=== PATIENT | female | born 1970 | race Caucasian/White ===

== ENCOUNTER → 2020-05-14 09:11 | Outpatient (CLI) | payer SELFPAY ==
--- NOTE | 2020-05-14 | ASPOS_PTH ---
PATIENT: MARY YBARRA LOC: [facility] U#:[id number] AGE/SX: 54/F ROOM: RE05/14/[address]: Dr. Sridhar Banda MD : 1970 BED: DIS: SPEC #: [id number] RECD: 05/14/20 10:38 STATUS: YULISSA [place] #: [id number] RASHEED: 05/14/20 00:[address]: Sridhar Banda DEPT: CYTOLOGY RECD BY: Brendan Leone ENTERED: 05/14/20 10:39 SP TYPE: ASP HERE OTHR DR: Dr. Mxaimus Huff MD Tissues: Neck, NOS Procedures: Surgery Specimen Level IV Cytology Other Fine Needle Asp on Site HEADER OPERATION: FNA left neck mass PRE-OP DIAGNOSIS: Left neck mass TISSUE SUBMITTED: Left neck mass for cytology DIAGNOSIS CYTOLOGY Fine needle aspiration, left neck mass (smears and cell block): Positive for malignant cells, non-small cell carcinoma. See comment. AM:raoul 05/17/2020 COMMENT The specimen is evaluated at the time of FNA by Dr. Davalos. Immediate Evaluation = Positive for malignant cells, non-small cell carcinoma. The tumor cells are negative for TTF-1 and Napsin A. Squamous cell markers (p40, CK14 and CF5-6) are negative. Clinical correlation is suggested. Immunohistochemistry ([id number]) supports the above diagnosis. Case has been reviewed in consultation with Dr. Monsalve who concurs with the above diagnosis. IDC:SJ CYTOLOGY STUDY Slides are reviewed. CYTOLOGY GROSS Received is 0.5 ml of reddish fluid labeled with the patient's name, and designated left neck. Four imprints and two paps are made from the submitted fluid and the rest is added to CytoLyt for cell block preparation. Submitted for cytology study. / AM:raoul 05/14/2020 TC:0 CPT: 28379, 69894, 54017, 09698 ADDENDUM ADDENDUM ADDENDUM ADDENDUM ADDENDUM ADDENDUM 06/14/2020 10:27 ADDENDUM 06/23/2020 09:58 ADDENDUM 07/06/2020 09:35 ADDENDUM 06/14/2020 10:27 ADDENDUM 06/14/2020 10:27 ADDENDUM 06/14/2020 10:27 ADDENDUM 06/14/2020 10:27 PD-L1 (KEYTRUDA) IMMUNOHISTOCHEMICAL ANALYSIS FROM [employer] RESULTS: Tumor proportion score: <1% / Negative Please see complete report in e-chart or EMR [facility] NGS REPORT FROM [facility] RESULT SUMMARY: Abnormal PERTINENT NEGATIVE RESULTS: The following genes are NEGATIVE for clinically relevant mutations. Mutational hotspots and surrounding exonic regions were interrogated for DNA level point mutations and indels (fusions not assayed). AKT1, ALK, BRAF, EGFR, ERBB2, FGFR1, KRAS, MAP2K1, MET, NRAS, NTRK1, PIK3CA, POLD1, POLE, TERT Please see complete report in e-chart or EMR [facility] NEXT GENER[facility] SEQUENCING GENE FUSION PANEL Test not performed. The specimen did not contain sufficient tumor material. Please see complete report in e-chart or EMR
--- NOTE | 2020-05-14 | IMM_PTH ---
PATIENT: MARY YBARRA LOC: LAB U#:[id number] AGE/SX: 54/F ROOM: RE05/14/[address]: Dr. Sridhar Banda MD : 1970 BED: DIS: SPEC #: [id number] RECD: 05/17/20 14:05 STATUS: YULISSA REQ #: [id number] RASHEED: 05/14/20 00:[address]: Sridhar Banda DEPT: IMMUNOHISTOCHEMISTRY RECD BY: Arabella Ibarra ENTERED: 05/17/20 14:07 SP TYPE: IMMUNO OTHR DR: Dr. Maximus Huff MD Tissues: Neck, NOS Procedures: NAPSIN A (add) CK14 (add) CK20 (add) CK5-6 (add) CK7 (add) CK8 (add) P53 (add) Pankeratin (add) P40 (add) TTF1 (initial) PHYSICIAN & INSTITUTION [facility] [phone] SPECIMEN INFORMATION: Tissue Source: Left neck mass Clinical Info: Left neck mass Specimen Number: [id number] CPT code: 77850, 01019 x9 METHODOLOGY: Deparaffinized sections of prefer/formalin-fixed tissue or PAP/DQ stained slides are incubated with monoclonal/polyclonal antibodies/oligonucleotide probes. Localization is made via biotin free immunoperoxidase method. Appropriate controls are performed and reacted as expected. Results on target cell population are indicated in the following table: RESULTS: ANTIBODY / CLONE RESULT TTF-1 (8G7G3/1) negative Napsin A (Rabbit Polyclonal) negative CK5-6 (D5 & 1684) negative CK14 (LL002) negative P40 (BC28) negative P53 (DO-7) positive AE1-3 (AE1/AE3/PCK26) positive CK7 (OV-TL12/30) positive CK8 (78rgkpP50) positive CK20 (KS20.8) negative These tests were developed and their performance characteristics determined by [facility]. They may not have been cleared or approved by the U.S. Food and Drug Administration. The FDA has determined that such clearance or approval is not necessary. The above immunohistochemical/dualISH markers are ordered and reviewed by the Pathologist. INTERPRETATION: Left neck mass, fine needle aspiration: Positive for malignant cells, non-small cell carcinoma. AM:raoul 05/19/2020 Case has been reviewed in consultation with Dr. Monsalve who concurs with the above diagnosis. IDC:SJ
== END ==
PROVIDERS: Referring Provider Otolaryngology; Visit Provider Otolaryngology
DX: R22.1 Localized swelling, mass and lump, neck (principal)
CPT/HCPCS: 10021; 88161; 88305; 88341; 88342

== ENCOUNTER → 2020-05-25 13:02 | Outpatient (CLI) | payer SELFPAY ==
--- NOTE | 2020-05-25 13:28 | MRI_ITS ---
STUDY: MRI BRAIN WITH AND WITHOUT CONTRAST REASON FOR EXAM: Female, 49 years old. LEFT neck CA of unknown orging, mass. Positive biopsy of nonsmall cell carcinoma concern for metsatic dz TECHNIQUE: Standardized multiplanar fat and water weighted pulse sequences were obtained. IV 11 Dotarem was administered for the contrast portion of the examination. COMPARISON: None. FINDINGS: Normal size of the ventricles and extra-axial spaces for the patient''s age. Normal white matter tracts of the supratentorial brain. There is no evidence for recent intracranial ischemia or other cause of cytotoxic edema on diffusion weighted imaging (DWI). Normal T2* images of the brain without demonstrated susceptibility artifact. There is no demonstrated hemosiderin stain. Normal bilateral basal ganglia. Normal thalami. There is no extra-axial fluid accumulation. Normal flow voids within the major intracranial circulation suggesting patency by spin echo criteria. Normal venous enhancement. There is no enhancing intra-axial or extra-axial abnormality. Normal sella turcica, pituitary gland, infundibular stalk, optic chiasm and hypothalamus. Normal tectal plate and pineal gland. Normal midbrain, wesly and medulla. Normal cerebellum. Normal basal cisterns. Normal bilateral temporal bones. Normal bilateral internal auditory canals. No demonstrated orbital abnormality, within the constraints of a routine brain study. Normal visualized paranasal sinuses. Normal calvarium and skull base. Normal visualized soft tissue structures. Normal visualized upper cervical spine. MRI/Brain W/WO Contrast IMPRESSION: Normal unenhanced and enhanced MRI of the brain. Electronically Signed: Brayan Chiu MD at 15:05 EST Tel , Service support ,
== END ==
PROVIDERS: Referring Provider Otolaryngology; Visit Provider Otolaryngology
DX: C76.0 Malignant neoplasm of head, face and neck (principal)
CPT/HCPCS: 70553; A9575

== ENCOUNTER → 2020-06-01 16:26 | Outpatient (CLI) | payer SELFPAY ==
--- NOTE | 2020-06-01 16:00 | PET_ITS ---
EXAMINATION: FDG PET/CT INDICATIONS: A 49-year-old female with reported history of apparent head and neck carcinoma presenting for initial staging examination. COMPARISON EXAMINATION: None available INDEX LESION SIZE SUV INTERPRETATION Left lateral posterior neck level V-A 26.5-mm (frame 229) 11.4 Fulfills quantitative criteria for viable neoplasm Right lateral neck level II-B 6.3-mm (frame 232) 3.2 Fulfills quantitative criteria for viable neoplasm Right thoracic perihilum-infrahilar region 5.2 x 6.1-cm (largest) (frame 170) 12.2 (max) Fulfills quantitative criteria for viable neoplasm Abdominal retroperitoneum, retrocrural soft tissue nodularity 18.4-mm (largest) (frame 107) 5.6 (max) Fulfills quantitative criteria for viable neoplasm Left adrenal gland 7.0 Fulfills quantitative criteria for viable neoplasm TECHNIQUE: Following the intravenous administration of 11.7 mCi of F-18 deoxyglucose via the left antecubital fossa, multiplanar image acquisitions of the neck, chest, abdomen and pelvis to level of mid thigh, obtained at one hour post radiopharmaceutical administration contemporaneously interpreted with the current CT of the neck, chest, abdomen and pelvis to level of mid thigh, dated 06/01/20 via coregistration reveal: SERUM GLUCOSE LEVEL: 110 mg/dl. HEIGHT: 60 inches. WEIGHT: 120 lbs. FINDINGS: 1. There is an asymmetric increase in glucose metabolism manifest in the left lateral neck posteriorly involving level V-A generating a calculated maximal standard uptake value of 11.4. The maximal axial diameter of the corresponding metabolic, morphologic abnormality on review of CT of the neck dated 06/01/20 is 26.5-mm (transverse). 2. Enhanced tracer concentration is observed in the right lateral neck involving level II-B in a single nodular focus. The calculated maximal standard uptake value is 3.2. The maximal axial diameter of the corresponding soft tissue density without fatty hilus expression on review of CT of the neck dated 06/01/20 is 6.3-mm (AP). 3. Enhanced fluorine labeled glucose metabolism is defined in the right thoracic perihilum-infrahilar region generating a calculated maximal standard uptake value of 12.2. The maximal axial diameter of the corresponding metabolic, morphologic abnormality on review of CT of the chest dated 06/01/20 is 5.2-cm (transverse) x 6.1-cm (AP). 4. An increase in FDG distribution is defined in the right lower abdominal retroperitoneum, the right upper abdomen corresponding to retrocrural soft tissue. The calculated maximal standard uptake value is 5.6. The maximal axial diameter of the largest individual hypermetabolic soft tissue density on review of CT of the abdomen dated 06/01/20 is 18.4-mm (transverse). 5. There is an increase in radiotracer uptake observed in the left upper abdomen associated with a prominent size left adrenal gland registering a calculated maximal standard uptake value of 7.0. 6. Normal physiologic distribution of the radiopharmaceutical is apparent in the hepatic (2.4) and splenic parenchyma, both renal units, bladder and visualized intestinal tract. The visualized portion of the cerebral cortex demonstrate symmetric and preserved glucose metabolism. Diffuse radiopharmaceutical concentration is noted in all four quadrants of the abdomen and pelvis. Pertinent CT findings are as follows: CHEST: There is atherosclerotic calcification defined in the thoracic aorta without evidence of dilatation-aneurysm formation. Bilateral axillary soft tissue densities with fatty hilus are ametabolic. Additional parenchymal densities defined in the right hemithorax pulmonary parenchyma do not demonstrate quantitatively significant increased FDG concentration with a calculated maximal standard uptake value of 1.7. Interfissural pleural effusion is ametabolic. ABDOMEN AND PELVIS: There is atherosclerotic calcification defined in the abdominal aorta without evidence of dilatation-aneurysm formation. Pelvic arterial calcification is observed. Bilateral inguinal soft tissue densities are non-glucose avid. Colonic diverticulosis is encountered without evidence of diverticulitis. SKELETAL: Degenerative changes are noted in the cervical, thoracic and lumbar spine without evidence of increased radiopharmaceutical concentration. PET/PET/CT Tumor Base -Thigh Init IMPRESSION: 1. ABNORMAL EXAMINATION INDICATIVE OF ORHLEGTNL-[id number]-[id number] VIABLE NEOPLASM. 2. Increased glucose concentration observed in the bilateral lateral neck fulfill quantitative criteria for viable neoplasm. 3. The right thoracic perihilar infrahilar hypermetabolic focus fulfills quantitative criteria for malignant transformation. (Shira jackson al, Journal of Clinical Oncology 16:2142, 1998). 4. Viable neoplasm appears evident in the abdominal retroperitoneum and upper abdomen, retrocrural in location. 5. Enhanced tracer uptake observed in the left adrenal gland fulfills quantitative criteria for viable neoplasm. Electronic Signature Brayan Arevalo D.O. Accurate Quantification of SUVs for this report are calculated using the exclusive [employer]? Technology.??Exclusive [place].S. Patent [employer]? Technology (U.S. Patent No. [phone]). Electronically Signed: Brayan Arevalo DO at 9:33 EST Tel , Service support ,
== END ==
PROVIDERS: Referring Provider Otolaryngology; Visit Provider Otolaryngology
DX: C76.0 Malignant neoplasm of head, face and neck (principal)
CPT/HCPCS: 78815; A9552

== ENCOUNTER → 2020-10-07 09:16 | Outpatient (CLI) | payer MEDICAID, SELFPAY ==
--- NOTE | 2020-10-07 | ASPOS_PTH ---
PATIENT: MARY YBARRA LOC: [facility] U#:[id number] AGE/SX: 54/F ROOM: RE10/07/[address]: Dr. Paul Reyes MD : 1970 BED: DIS: SPEC #: [id number] RECD: 10/07/20 10:00 STATUS: YULISSA VARGASLudin #: [id number] RASHEED: 10/07/20 00:[address]: Paul Reyes DEPT: CYTOLOGY RECD BY: Delores Rosenthal Tissues: Neck, NOS Procedures: Surgery Specimen Level IV Cytology Other Fine Needle Asp on Site HEADER OPERATION: Fine needle aspiration right neck mass PRE-OP DIAGNOSIS: Right neck mass TISSUE SUBMITTED: Fine needle aspiration right neck mass DIAGNOSIS CYTOLOGY Fine needle aspiration, right neck mass (smears and cell block): Positive for malignant cells consistent with metastatic non-small cell carcinoma. See comment. AM:raoul 10/08/2020 COMMENT The specimen is evaluated at the time of FNA by Dr. Davalos. Immediate Evaluation = Positive for malignant cells consistent with metastatic non-small cell carcinoma. Immunohistochemistry ([id number]) supports the diagnosis and does not favor a thyroid primary. Reference is made to previous cytology (C21-7) with similar findings. Clinical correlation is suggested. Case has been reviewed in consultation with Dr. Monsalve who concurs with the above diagnosis. IDC:SJ CYTOLOGY STUDY Slides are reviewed. CYTOLOGY GROSS Received is 0.2 ml of reddish fluid labeled with the patient's name, and designated right neck mass. Five imprints and three paps are made from the submitted fluid and the rest is added to CytoLyt for cell block preparation. Submitted for cytology study. / BISHNU:raoul 10/07/2020 TC:0 CPT: 50573, 18978, 38898, 53276 ADDENDUM ADDENDUM ADDENDUM ADDENDUM ADDENDUM ADDENDUM ADDENDUM ADDENDUM ADDENDUM 01/05/2021 10:57 ADDENDUM 01/05/2021 10:57 ADDENDUM 01/05/2021 10:57 ADDENDUM 01/05/2021 10:57 ADDENDUM 01/05/2021 10:57 [facility] PAN[facility] FROM [facility] [employer] Test not performed. Upon nucleic acid extraction from the submitted specimen, insufficient nucleic acid amounts were obtained to meet the requirements for molecular testing. Please see complete report in e-chart or EMR
--- NOTE | 2020-10-07 | IMM_PTH ---
PATIENT: MARY YBARRA LOC: [facility] U#:[id number] AGE/SX: 54/F ROOM: RE10/07/[address]: Dr. Paul Reyes MD : 1970 BED: DIS: SPEC #: [id number] RECD: 10/08/20 13:08 STATUS: YULISSA RELudin #: [id number] RASHEED: 10/07/20 00:[address]: Paul Reyes DEPT: IMMUNOHISTOCHEMISTRY RECD BY: Arabella Ibarra Tissues: Neck, NOS Procedures: Thyroglobulin (add) NAPSIN A (add) CD56 (add) CK20 (add) CK5-6 (add) CK7 (add) CK8 (add) WARREN-2 (add) GAL-3 (add) MAMM (add) P53 (add) OK (add) TTF1 (add) Vimentin (add) Pankeratin (add) GATA3 (add) P40 (add) CDX2 (add) ER (initial) S-100 (add) PHYSICIAN & INSTITUTION [address] [address] SPECIMEN INFORMATION: Tissue Source: Right neck mass Clinical Info: Right neck mass Specimen Number: [id number] CPT code: 85637, 34042 x19 METHODOLOGY: Deparaffinized sections of prefer/formalin-fixed tissue or PAP/DQ stained slides are incubated with monoclonal/polyclonal antibodies/oligonucleotide probes. Localization is made via biotin free immunoperoxidase method. Appropriate controls are performed and reacted as expected. Results on target cell population are indicated in the following table: RESULTS: ANTIBODY / CLONE RESULT ER (6F11) negative OK (1E2) negative Mammaglobin (31A5) negative GATA3 (L50-823) negative AE1-3 (AE1/AE3/PCK26) negative CK7 (OV-TL12/30) positive, dim CK8 (86woqpR56) positive, rare CK20 (KS20.8) negative WARREN-2 (SP21) positive CDX2 ([id number]) negative Vimentin (V9) negative S-100 (4C4.9) negative GAL3 (9C4) negative CD56 (123C3.D5) negative TTF-1 (8G7G3/1) negative Napsin A (Rabbit Polyclonal) negative Thyro (2H11+6E1) negative CK5-6 (D5 & 1684) negative P40 (BC28) negative P53 (DO-7) negative These tests were developed and their performance characteristics determined by [facility]. They may not have been cleared or approved by the U.S. Food and Drug Administration. The FDA has determined that such clearance or approval is not necessary. The above immunohistochemical/dualISH markers are ordered and reviewed by the Pathologist. INTERPRETATION: Right neck mass, fine needle aspiration: Consistent with metastatic non-small cell carcinoma. AM:raoul 10/11/2020 Comment: The IHC profile does not favor a thyroid primary. Case has been reviewed in consultation with Dr. Monsalve who concurs with the above diagnosis. IDC:SJ
== END ==
PROVIDERS: Referring Provider Otolaryngology; Visit Provider Otolaryngology
DX: R22.1 Localized swelling, mass and lump, neck (principal)
CPT/HCPCS: 10021; 88161; 88305; 88341; 88342

== ENCOUNTER 2020-12-20 14:11 | Emergency (ER) | payer MEDICAID, SELFPAY ==
[2020-12-20 14:12] VITALS: BP 121/77; PULSE 117; RESP 20; TEMP 36.6; O2SAT 93; BMI 23.4
[2020-12-20 14:17] VITALS: BP 121/77; PULSE 117; RESP 20; TEMP 36.6; O2SAT 93
--- NOTE | 2020-12-20 14:33 | CT_ITS ---
HISTORY: Eval for postobstructive pneumonia EXAMINATION: CT Chest W/ Contrast Injection TECHNIQUE: Helically acquired images were obtained of the chest following IV contrast. A radiation dose optimization technique was used for this scan. IV Contrast dosage and agent: 100mL Isovue-300 COMPARISON: 06/01/20 FINDINGS: LUNGS, PLEURA AND LARGE AIRWAYS: Increasing size right hilar soft tissue mass, greatest transverse diameter 6.2 cm compared to prior 5.5 cm. Soft tissue mass constricts the right bronchus intermedius and occludes the proximal bronchus to the right lower lobe. Abnormal soft tissue extends from the right hilar mass to the pleural surface of the right middle lobe anterolaterally. Scattered airspace opacities in the lingula, left lower and right upper lobe, minimally in the right lower lobe with small areas of confluence in the right upper and lower lobes. Multiple pneumatoceles now apparent in the right lower lobe, not previously present. THYROID: Stable 2.3 cm right lobe nodule. HEART AND PERICARDIUM: Heart size is normal. No pericardial effusion. VESSELS: Thoracic aorta is not dilated. No aortic dissection. No obvious central pulmonary embolism. Pulmonary artery to the right lower lobe does not enhance. MEDIASTINUM AND MAX: No additional mediastinal or hilar adenopathy. Esophagus is unremarkable. No hiatal hernia. UPPER ABDOMEN: Increasing left adrenal nodule, 4.2 cm, consistent with metastasis. BONES: No suspicious lytic or blastic abnormality. CT/Chest WITH Contrast IMPRESSION: Progression of the right hilar mass with occlusion of the proximal bronchus to the right lower lobe and pulmonary artery branches to the right lower lobe. Soft tissue extension, likely neoplastic to the pleural surface of the right middle lobe. Scattered bilateral airspace opacities suspicious for metastatic disease although infection cannot be excluded. Multiple pneumatoceles right lower lobe which are new since the prior study and may represent the sequela of infection. Increasing left adrenal metastasis. Individualized dose optimization techniques were used for this CT. at 1604 Reported and signed by: Gordo Franks MD Electronically Signed: Gordo Franks MD at 16:03 EDT Tel , Service support ,
--- NOTE | 2020-12-20 14:35 | EDS_ITS ---
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 This fever has been on and off over the past 5 weeks. Typically does occur daily. It does respond to Tylenol for a few hours but comes back. She did have a large work-up at an outside emergency department this past Sunday. Urine and blood cultures are currently pending. She was started on Augmentin, she has taken 5 doses so far. She is being treated with nystatin for thrush. She was sent in by her oncologist to rule out a postobstructive pneumonia. She does have a chronic cough that she does not feel is worse than normal. No sputum production. No chest pain or shortness of breath. She denies any significant headache or neck pain. No abdominal pain or diarrhea. She does have change in bowel movements but relates this to her chemotherapy. She does have a rash on her upper chest and relates this to a sunburn. No other rashes elsewhere. [facility] Medical History (Updated 12/20/20 @ 16:[address] Chuy Marmolejo DO) Lung cancer Home Medications folic acid 1 mg PO DAILY 12/20/20 [History Last Taken Unknown] levofloxacin 750 mg PO DAILY #7 tab 12/20/20 [Rx Last Taken Unknown] nystatin 5 ml PO TID 12/20/20 [History Last Taken Unknown] ondansetron 4 mg PO Q6H PRN PRN 12/20/20 [History Last Taken Unknown] Allergy/AdvReac Type Severity Reaction Status Date / Time sulfamethoxazole Allergy Rash Verified 12/20/20 14:17 [From Bactrim] trimethoprim [From Bactrim] Allergy Rash Verified 12/20/20 14:17 Social History Smoking Status: Former smoker ROS ROS ED Constitutional Constitutional ED: Reports fever(s) Eyes Eyes: Denies change in vision ENT ENT ED: Denies epistaxis or rhinorrhea Cardiovascular Cardiovascular: Denies chest pain or palpitations Respiratory/Chest Respiratory/Chest: Reports cough; Denies dyspnea, dyspnea on exertion or sputum Gastrointestinal Gastrointestinal: Reports diarrhea; Denies abdominal pain, nausea or vomiting Genitourinary Genitourinary ED: Denies dysuria, hematuria or urinary frequency Musculoskeletal Musculoskeletal: Denies back pain or neck pain Integumentary Denies rash Neurologic Neurologic: Denies dizziness, headache(s) or weakness EXAM Physical Exam Const Vital Signs: 12/20/20 14:12 12/20/20 14:17 12/20/20 16:52 Temperature 97.9 F 97.9 F 98 F Temperature Source Temporal Temporal Pulse Rate 117 H 117 H 89 Respiratory Rate 20 H 20 H 17 Respiratory Effort Normal Respiratory Pattern Normal Blood Pressure 121/77 H 121/77 H Blood Pressure Mean 91 91 Pulse Ox 93 93 99 Oxygen Delivery Method Room Air Room Air Positive well nourished and well developed General Appearance ED: well developed and NAD HEENT Reports normocephalic, head/scalp atraumatic, TM's clear and moist mucous membranes HEENT Narrative: White plaque on tongue present. No other oral lesions or abscess appreciated. Tympanic Membrane ED: Yes TM's clear Eyes PERRL and EOMs intact bilaterally Neck no lymphadenopathy and supple General: Negative for tenderness Resp normal respiratory effort and clear to auscultation bilaterally Auscultation: Negative for rales, rhonchi or wheezes Cardio regular rhythm and no murmurs Rate: tachycardic GI normal to inspection, nondistended, normoactive bowel sounds and non-tender Palpation: soft; Negative for guarding or rebound tenderness present Extremity normal to inspection General Extremety ED: Negative for edema or tenderness General Extremity: Negative for edema Neuro Sensorium / Orientation: alert Motor Exam: strength 5/5 throughout Psych mental status grossly normal Skin Skin Narrative: Erythema over superior anterior chest. MDM MDM MDM Narrative Medical decision making narrative: Patient presents to the emergency department for fever of unknown origin. She was sent in by her oncologist to rule out a postobstructive pneumonia. She does currently have urine and blood cultures pending from outside hospital from this past Sunday. She is currently on Augmentin and nystatin for thrush. We will repeat blood cultures, basic lab work and CT scan of the chest. She had a negative x-ray of the chest just recently. CT scan of the chest was performed. There was enlarging of the previous seen mass. This is causing obstruction of the bronchus. The metastatic adrenal mass also appears larger. There are other findings which can be found in the radiology report. I did call the oncologist and went over the entire scan with him. I did review with the patient as well. He states that he has had previous imaging since and can compare to those. Patient's lower does not reveal her to be neutropenic. She does not have a high white blood cell count. The rest of her lab did not reveal a significant acute abnormality. Sodium potassium are mildly low. She otherwise has remained stable throughout ED stay. Her oncologist did request to switch the Augmentin to levofloxacin. He is going to contact her tomorrow for close follow-up. Lab Data Labs: Laboratory Results - last 24 hr 12/20/20 12/20/20 14:43 14:43 WBC 5.5 RBC 3.71 L Hgb 10.7 L Hct 33.4 L MCV 90.0 MCH 28.8 MCHC 32.0 RDW Std Deviation 55.6 H RDW Coeff of Derrick 16.9 H Plt Count 410 MPV 10.1 Immature Gran % (Auto) 1.400 H Neut % (Auto) 75.0 H Lymph % (Auto) 11.2 L [place] % (Auto) 10.8 H Eos % (Auto) 0.0 Baso % (Auto) 1.6 H Absolute Neuts (auto) 4.2 Absolute Lymphs (auto) 0.62 L Nucleated RBC % 0 Sodium 132 L Potassium 3.1 L Chloride 97 L Carbon Dioxide 27.0 Anion Gap 8 BUN 7 Creatinine 0.48 L Estim Creat Clear Calc 99.60 Est GFR (MDRD) Af Amer 177 Est GFR (MDRD) Non-Af 147 BUN/Creatinine Ratio 14.7 Glucose 108 H Calcium 8.8 Total Bilirubin 0.30 AST 24 ALT 17 Alkaline Phosphatase 59 Total Protein 7.3 Albumin 2.5 L Globulin 4.8 H Albumin/Globulin Ratio 0.5 L Radiography Diagnostic Testing: Radiology Impression Chest CT 12/20/20 14:33 IMPRESSION: Progression of the right hilar mass with occlusion of the proximal bronchus to the right lower lobe and pulmonary artery branches to the right lower lobe. Soft tissue extension, likely neoplastic to the pleural surface of the right middle lobe. Scattered bilateral airspace opacities suspicious for metastatic disease although infection cannot be excluded. Multiple pneumatoceles right lower lobe which are new since the prior study and may represent the sequela of infection. Increasing left adrenal metastasis. Individualized dose optimization techniques were used for this CT. at 1604 Reported and signed by: Gordo Franks MD Electronically Signed: Gordo Franks MD at 16:03 EDT Tel , Service support , Discharge Plan Triage Chief Complaint: Fever ED Provider: Chuy Marmolejo Dx/Rx/DC Orders Clinical Impression: Fever Instructions: ED FUO Adult, ED Pneumonia (Adult) Prescriptions: New levofloxacin 750 mg tablet 750 mg PO DAILY Qty: 7 RF: 0 No Action nystatin 100,000 unit/mL suspension 5 ml PO TID RF: 0 folic acid 1 mg tablet 1 mg PO DAILY RF: 0 ondansetron 4 mg tablet,disintegrating 4 mg PO Q6H PRN PRN (Reason: Nausea) RF: 0 Primary Care Provider: Care Physician,No Primary Referrals: Care Physician,No Primary [Primary Care Provider] - Activity Restrictions/Additional Instructions: Please follow-up with your oncologist tomorrow. You can stop the Augmentin and start the Levaquin. Disposition Disposition: Home, Self Care Discharge Date/Time: 12/20/20 16:53
[2020-12-20 14:56] LABS: Absolute Lymphocyte Count 0.62 X10^3/uL (0.83-4.51); Absolute Neutrophil Count 4.2 X10^3/uL (2.0-7.7); Basophil# 0.09 X10^3/uL; Basophil% 1.6 % (0-1); Hematocrit 33.4 % (37-47); Hemoglobin 10.7 g/dL (12.0-15.0); Lymphocyte # 0.62 X10^3/ul (0.83-4.51); Lymphocyte % 11.2 % (19-41); Mean Corpuscular Hgb 28.8 pg (27.0-32.0); Mean Platelet Vol. 10.1 fl (6.2-12.0); Monocyte% 10.8 % (0-10); NRBC Flagged by Analyzer 0 % (0-5); Neutrophil # 4.15 X10^3/uL (2.7-7.7); Platelet Count 410 K/mm3 (150-450); RBC Distribution Width CV 16.9 % (11.6-14.6); RBC Distribution Width SD 55.6 fl (35.1-43.9); Red Blood Count 3.71 M/mm3 (4.2-5.4); White Blood Count 5.5 K/mm3 (4.4-11.0)
[2020-12-20 15:23] LABS: ALB/GLOB Ratio 0.5 RATIO (0.9-2.4); AST(SGOT) 24 U/L (15-37); Alanine Aminotransfer ALT/SGPT 17 U/L (13-56); Albumin, Serum 2.5 g/dL (3.2-5.0); Alkaline Phosphatase 59 U/L (45-117); Anion Gap 8 (5-15); BUN 7 mg/dL (7-18); BUN/Creat Ratio 14.7 RATIO (10-20); Calcium,Total 8.8 mg/dL (8.5-10.1); Chloride 97 mmol/L (98-107); Creatinine, Serum 0.48 mg/dL (0.55-1.02); EST Glomerular Filtration Rate 147 mL/min (>60); Est Glom Filt Rate - Afr Amer 177 mL/min (>60); Globulin 4.8 g/dL (2.2-4.2); Glucose 108 mg/dL (74-106); Potassium 3.1 mmol/L (3.5-5.1); Protein, Total 7.3 g/dL (6.4-8.2); Sodium Level 132 mmol/L (136-145)
--- NOTE | 2020-12-20 16:19 | NURSING ---
DR Yaron VU
--- NOTE | 2020-12-20 16:20 | NURSING ---
DR JIMENEZ PAGED
[2020-12-20 16:52] VITALS: PULSE 89; RESP 17; TEMP 36.6; O2SAT 99
== END 2020-12-20 16:53 | disposition home or self-care (01) ==
PROVIDERS: Emergency Provider Emergency Medicine
DX: R50.9 Fever, unspecified (principal); J98.4 Other disorders of lung; C79.72 Secondary malignant neoplasm of left adrenal gland; B37.0 Candidal stomatitis; Z79.899 Other long term (current) drug therapy; Z87.891 Personal history of nicotine dependence; Z85.118 Personal history of other malignant neoplasm of bronchus and lung
CPT/HCPCS: 71260; 80053; 85025; 87040; 99283; J7030; Q9967

== ENCOUNTER → 2020-12-27 11:25 | Outpatient (CLI) | payer MEDICAID, SELFPAY ==
[2020-12-27 11:41] LABS: Absolute Lymphocyte Count 0.67 X10^3/uL (0.83-4.51); Absolute Neutrophil Count 2.5 X10^3/uL (2.0-7.7); Basophil# 0.05 X10^3/uL; Basophil% 1.3 % (0-1); Hematocrit 35.4 % (37-47); Hemoglobin 11.6 g/dL (12.0-15.0); Lymphocyte # 0.67 X10^3/ul (0.83-4.51); Lymphocyte % 17.9 % (19-41); Mean Corp Hgb Conc 32.8 g/dL (32-36); Mean Corpuscular Hgb 28.8 pg (27.0-32.0); Mean Corpuscular Volume 87.8 fL (81-99); Monocyte% 13.4 % (0-10); NRBC Flagged by Analyzer 0 % (0-5); Neutrophil # 2.47 X10^3/uL (2.7-7.7); Neutrophil % 66.1 % (47-70); Platelet Count 544 K/mm3 (150-450); RBC Distribution Width CV 17.2 % (11.6-14.6); RBC Distribution Width SD 54.4 fl (35.1-43.9); Red Blood Count 4.03 M/mm3 (4.2-5.4); White Blood Count 3.7 K/mm3 (4.4-11.0)
[2020-12-27 12:13] LABS: Rheumatoid Factor < 10.0 IU/mL (<15); Thyroid Stim Hormone (TSH) 0.76 uIU/mL (0.358-3.74)
[2020-12-28 12:09] LABS: ANTINUCLEAR ANTIBODIES DIRECT Positive (Negative); Anti-Centromere B Ab <0.2 AI (0.0-0.9); Anti-Chromatin <0.2 AI (0.0-0.9); Anti-Jo <0.2 AI (0.0-0.9); Anti-Scleroderma-70 AB <0.2 AI (0.0-0.9); RNP Ab <0.2 AI (0.0-0.9); SJOGREN'S Anti-SS-A test 3.5 AI (0.0-0.9); SJOGREN'S Anti-SS-B test < 0.2 AI (0.0-0.9); Smith Ab <0.2 AI (0.0-0.9)
[2020-12-28 16:56] LABS: Anti-dsDNA Ab 1 IU/mL (0-9)
[2020-12-29 03:07] LABS: Cytoplasmic Ab (C-ANCA) <1:20 titer (Neg:<1:20)
[2020-12-29 09:40] LABS: CCP IgG Antibodies 6 units (0-19); Perinuclear Ab (P-ANCA) <1:20 titer (Neg:<1:20)
== END ==
PROVIDERS: PCP Family Medicine; Referring Provider Internal Medicine Critical Care Medicine; Visit Provider Internal Medicine Critical Care Medicine
DX: R50.9 Fever, unspecified (principal); R93.89 Abnormal findings on diagnostic imaging of other specified body structures
CPT/HCPCS: 36415; 84443; 85025; 86038; 86200; 86225; 86235; 86256; 86431

== ENCOUNTER → 2020-12-27 11:45 | Outpatient (CLI) | payer MEDICAID, SELFPAY | PROVIDERS: PCP Family Medicine; Referring Provider Internal Medicine Critical Care Medicine; Visit Provider Internal Medicine Critical Care Medicine | DX: R50.9 Fever, unspecified (principal); R93.89 Abnormal findings on diagnostic imaging of other specified body structures | CPT/HCPCS: 36415; 84443; 85025; 86038; 86200; 86225; 86235; 86256; 86431; 87635; C9803; U0005; U0003 ==